=== PATIENT | male | born 1975 | race American Indian/Alaskan Native ===

== ENCOUNTER 2020-11-22 03:22 | Emergency (ER) | payer BC ==
[2020-11-22] MEDS ORDERED: SODIUM CHLORIDE 0.9% 1000 ML 1,000 ML IV ONE ×2 (03:44→05:13)
--- NOTE | 2020-11-22 03:46 | Emergency Department Report ---
ED General Adult HPI - General Chief complaint: Extremity Problem,Nontraumatic Stated complaint: HIGH BLOOD SUGAR PUI?: No Time Seen by Provider: 11/22/20 03:42 Source: patient Mode of arrival: Stretcher Limitations: No Limitations - History of Present Illness Initial comments: Patient is a 45-year-old male who presents emergency room with complaints of bilateral lower extremity pain. Patient states he is having leg cramps. Patient states it started 1 hour ago. Patient states that somebody had called EMS to bring him to the hospital. Patient states his blood sugar has also been high. Patient states that he is an insulin-dependent diabetic. Patient states he is compliant with his medications. Patient states he is not sure why he is having leg cramps or his blood sugar is high. Patient denies chest pain or shortness of breath. Patient denies calf tenderness. Patient denies recent travel. Patient denies recent international travel. Patient denies exposure to the novel coronavirus. Patient denies sick contacts. Patient denies fever and chills. Patient denies cough. Patient denies diarrhea. Patient denies coming in contact with anybody with symptoms of the novel coronavirus. -: Sudden Location: lower extremity Severity scale (0 -10): 10 Quality: stabbing Consistency: constant Improves with: rest Worsens with: movement Associated Symptoms: denies: confusion, chest pain, cough, diaphoresis, fev er/chills, headaches, loss of appetite, malaise, nausea/vomiting, rash, seizure, shortness of breath, syncope, weakness Treatments Prior to Arrival: none - Related Data Previous Rx's Medication Instructions Recorded Last Taken Type Acetaminophen/Codeine [Tylenol 1 tab PO Q6H PRN #12 tab 11/22/20 Unknown Rx /Codeine # 3 tab] Allergies Allergy/AdvReac Type Severity Reaction Status Date / Time No Known Allergies Allergy Unverified 11/22/20 04:15 ED Review of Systems ROS: Stated complaint: HIGH BLOOD SUGAR Other details as noted in HPI Constitutional: denies: chills, fever Eyes: denies: eye pain, eye discharge, vision change ENT: denies: ear pain, throat pain Respiratory: denies: cough, shortness of breath, wheezing Cardiovascular: denies: chest pain, palpitations Endocrine: no symptoms reported Gastrointestinal: denies: abdominal pain, nausea, diarrhea Genitourinary: denies: urgency, dysuria Musculoskeletal: denies: back pain, joint swelling, arthralgia Skin: denies: rash, lesions Neurological: denies: headache, weakness, paresthesias Psychiatric: denies: anxiety, depression Hematological/Lymphatic: denies: easy bleeding, easy bruising ED Past Medical Hx - Past Medical History Previous Medical History?: Yes Hx Hypertension: Yes Hx Diabetes: Yes - Surgical History Past Surgical History?: No - Family History Family history: no significant - Social History Smoking Status: Never Smoker Substance Use Type: None - Medications Home Medications: Home Medications Medication Instructions Recorded Confirmed Last Taken Type Acetaminophen/Codeine [Tylenol 1 tab PO Q6H PRN #12 tab 11/22/20 Unknown Rx /Codeine # 3 tab] ED Physical Exam - General General appearance: alert, in no apparent distress - Head Head exam: Present: atraumatic, normocephalic - Eye Eye exam: Present: normal appearance - ENT ENT exam: Present: mucous membranes moist - Neck Neck exam: Present: normal inspection - Respiratory Respiratory exam: Present: normal lung sounds bilaterally. Absent: respiratory distress - Cardiovascular Cardiovascular Exam: Present: regular rate, normal rhythm. Absent: systolic mur mur, diastolic murmur, rubs, gallop - GI/Abdominal GI/Abdominal exam: Present: soft, normal bowel sounds - Rectal Rectal exam: Present: deferred - Extremities Exam Extremities exam: Present: normal inspection - Back Exam Back exam: Present: normal inspection - Neurological Exam Neurological exam: Present: alert, oriented X3 - Psychiatric Psychiatric exam: Present: normal affect, normal mood - Skin Skin exam: Present: warm, dry, intact, normal color. Absent: rash ED Course - Reevaluation(s) Reevaluation #1: Patient states his pain is better. Patient will have a repeat CK. 11/22/20 05:15 Reevaluation #2: Patient states his pain is better. Patient never received the Dilaudid. Patient has only received fluids. Patient CT is better. I discussed all results and clinical findings with patient. I discussed plan of care with patient. Patient agrees with plan of care. Patient is stable for discharge. Patient will be discharged home. Patient given discharge instructions. Patient voiced understanding of discharge instructions. 11/22/20 06:14 ED Medical Decision Making - Lab Data Result diagrams: 11/22/20 04:30 11/22/20 04:30 - Medical Decision Making Patient is a 45-year-old male that presents emergency room with complaints of elevated sugar and muscle graft. Patient brought in by EMS and the patient was found to have high blood sugar. Patient given a liter of fluid by EMS. Patient then given another liter of fluid by us after having his blood drawn. Patient given a total of 2 L of fluid and then patient had a repeat blood draw. Patient's labs are essentially unremarkable save for hyperglycemia and elevated CK. Patient's second CK came back lower. Patient given 1/3 L of fluid prior to discharge. Patient's pain improved with just fluid. Patient said his pain was dramatically better after treatment. Patient responded well to treatment. Patient is not in DKA. Patient CK improved. Patient is stable for discharge. Patient can be discharged home. Patient instructed to increase his fluids de crease his salt intake. Patient is not require any further emergency medical service. Patient not require any further inpatient services. Patient is stable for discharge. Patient discharged home. - Differential Diagnosis Dehydration, rhabdo, myositis, muscle cramps Critical care attestation.: If time is entered above; I have spent that time in minutes in the direct care of this critically ill patient, excluding procedure time. ED Disposition Clinical Impression: Elevated CK, Muscle cramps, Myalgia, Dehydration, Hyperglycemia Disposition: DC-01 TO HOME OR SELFCARE Is pt being admited?: No Does the pt Need Aspirin: No Condition: Stable Instructions: Preventing Type 2 Diabetes Mellitus, Dehydration, Adult, Idwv-ln-Klgh, Hyperglycemia, Dsya-tx-Vkhz, Creatine Kinase Test, Blood Glucose Monitoring, Adult, Dehydration, Adult Additional Instructions: Patient to follow-up with primary care in 2 days. Patient to follow-up with water meter reader in 2 to 3 days. Patient to rest. Patient to increase water. Patient to avoid strenuous exercise or heavy lifting until cleared by primary care. Patient to take Tylenol as needed for pain. Patient to increase water. Patient to eat a low-salt, heart healthy and diabetic diet. Patient to take meds as directed. Patient to return to the ER if condition worsens, changes or new symptoms arise. Prescriptions: Acetaminophen/Codeine [Tylenol /Codeine # 3 tab] 1 tab PO Q6H PRN #12 tab PRN Reason: Pain , Severe (7-10) Referrals: PRIMARY CARE, [Primary Care Provider] - 2-3 Days Time of Disposition: 06:20
[2020-11-22 04:48] LABS: Basophils % (Auto) 0.8 % (0.0-1.8); Eosinophils # (Auto) 0.2 K/mm3 (0.0-0.4); Eosinophils % (Auto) 3.1 % (0.0-4.3); Hematocrit 39.5 % (35.5-45.6); Hemoglobin 13.9 gm/dl (11.8-15.2); Lymphocytes # (Auto) 2.3 K/mm3 (1.2-5.4); Mean Corpuscular HGB Conc 35 % (32-34); Mean Corpuscular Volume 91 fl (84-94); Monocytes # (Auto) 0.4 K/mm3 (0.0-0.8); Monocytes % (Auto) 7.1 % (0.0-7.3); Platelet Count 212 K/mm3 (140-440); Red Blood Count 4.32 M/mm3 (3.65-5.03); Red Cell Distribution Width 12.8 % (13.2-15.2)
[2020-11-22 04:59] LABS: Bilirubin,Urine NEG (Negative); Blood,Urine NEG (Negative); Color,Urine Yellow (Yellow); Protein,Urine <15 mg/dL mg/dL (Negative); RBC,Urine < 1.0 /HPF (0.0-6.0); Urobilinogen,Urine < 2.0 mg/dL (<2.0); WBC,Urine < 1.0 /HPF (0.0-6.0)
[2020-11-22 05:06] LABS: Alanine Aminotransferase 21 units/L (7-56); Albumin 4.1 g/dL (3.9-5); BUN/Creatinine Ratio 13; Bilirubin,Direct < 0.2 mg/dL (0-0.2); Blood Urea Nitrogen 15 mg/dL (9-20); Calcium 9.2 mg/dL (8.4-10.2); Hemolysis Index 18
[2020-11-22] MEDS ORDERED: HYDROmorphone 1 MG/1 ML INJ IV ONE (05:14)
[2020-11-22 08:46] VITALS: BP 125/84
== END 2020-11-22 07:35 | disposition home or self-care (01) ==
LOC: ED 03:22
DX: E11.65 Type 2 diabetes mellitus with hyperglycemia (principal); M79.10 Myalgia, unspecified site; E86.0 Dehydration; R74.8 Abnormal levels of other serum enzymes; R25.2 Cramp and spasm; I10 Essential (primary) hypertension; Z79.899 Other long term (current) drug therapy
CPT/HCPCS: 36415; 80048; 80076; 81001; 82550; 82805; 85025; 96360; 96361; 99284; J7030

== ENCOUNTER 2021-01-12 00:29 | Emergency (ER) | payer BC ==
--- NOTE | 2021-01-12 04:22 | Event Note ---
ED Screening Note Date of service: 01/12/21 Time: 04:20 ED Screening Note: 45-year-old male patient with history of asthma, hypertension, prior ID, prior stroke, sleep apnea, and diabetes presents to the emergency department via EMS with complaints of diffuse body aches and paresthesias for approximately 1 month. Today, patient began feeling dizzy, prompting him to call the paramedics. Patient states he has been out of his insulin for approximately 1 month. Patient is not anticoagulated. Tachycardic in triage. General: Awake, appropriately interactive, no acute distress. Neck: Supple. Full range of motion intact. Cardiovascular: Normal peripheral perfusion. Pulmonary: No respiratory distress. Patient is speaking normally without use of accessory muscles. Skin: No apparent rashes or lesions. Neurological: No facial asymmetry. Speech is clear. Follows commands. Patient is alert and oriented. Musculoskeletal: Moves all four extremities spontaneously with normal range of motion. Psych: Cooperative. Appropriate mood and affect. EKG, labs, chest x-ray ordered. ekg monitor tech and peripheral IV access requested. Attending emergency physician aware. I have greeted and performed a focused rapid initial assessment of this patient. A comprehensive ED assessment and evaluation of the patient, analysis of all test results, and completion of the medical decision-making process will be conducted by additional ED providers. This initial assessment/diagnostic orders/clinical plan/treatment(s) is/are subject to change based on patients health status, clinical progression and re-assessment. Further treatment and workup at subsequent clinical provider's discretion. Patient/guardian urged not to elope from the ED as their condition may be serious if not clinically assessed and managed.
[2021-01-12 04:38] LABS: Bilirubin,Urine NEG (Negative); Blood,Urine NEG (Negative); Color,Urine Colorless (Yellow); Protein,Urine <15 mg/dL mg/dL (Negative); Urobilinogen,Urine < 2.0 mg/dL (<2.0)
[2021-01-12 04:49] LABS: WBC,Urine < 1.0 /HPF (0.0-6.0)
--- NOTE | 2021-01-12 04:55 | XRay Report ---
CHEST PA AND LATERAL VIEWS INDICATION: dizziness. COMPARISON: None. FINDINGS: Support devices: None. Heart: Within normal limits. Lungs/Pleura: No acute pulmonary or pleural findings. IMPRESSION: 1. No acute findings. Signer Name: Carlos White MD Signed: 01/12/2021 4:51 AM Workstation Name: [id number]
[2021-01-12 05:50] LABS: Basophils % (Auto) 0.8 % (0.0-1.8); Eosinophils # (Auto) 0.1 K/mm3 (0.0-0.4); Eosinophils % (Auto) 2.1 % (0.0-4.3); Hematocrit 48.4 % (35.5-45.6); Hemoglobin 16.9 gm/dl (11.8-15.2); Lymphocytes # (Auto) 2.5 K/mm3 (1.2-5.4); Lymphocytes % (Auto) 48.9 % (13.4-35.0); Mean Corpuscular HGB Conc 35 % (32-34); Mean Corpuscular Volume 93 fl (84-94); Monocytes # (Auto) 0.2 K/mm3 (0.0-0.8); Monocytes % (Auto) 4.9 % (0.0-7.3); Platelet Count 223 K/mm3 (140-440); Red Blood Count 5.21 M/mm3 (3.65-5.03)
[2021-01-12 06:11] LABS: Albumin 4.6 g/dL (3.9-5); BUN/Creatinine Ratio 18; Blood Urea Nitrogen 22 mg/dL (9-20); Calcium 9.6 mg/dL (8.4-10.2); Hemolysis Index 68
[2021-01-12] MEDS ORDERED: SODIUM CHLORIDE 0.9% 1000 ML 1,000 ML IV ONE ×3 (06:24→11:32)
[2021-01-12 06:37] LABS: Alanine Aminotransferase < 5 units/L (7-56)
[2021-01-12 08:39] VITALS: BP 124/86
--- NOTE | 2021-01-12 08:40 | Event Note ---
Face to Face: For this encounter I have reviewed the PA/NURSING SERVICES MANAGER documentation, treatment plan, medical decision making, and I had face to face time with this patient. Mr. He is a 45-year-old male presents with generalized weakness paresthesias. He has body aches mild cough. Patient has been unable to afford insulin medication. t Suspect viral syndrome also patient has signs and symptoms of dehydration hypovolemia due to prolonged hyperglycemia. My colleague will address volume deficit and hyperglycemia with IV fluid and insulin bolus.
[2021-01-12] MEDS ORDERED: INSULIN REGULAR, HUMAN 100 UNITS/1 ML SUB-Q ONE (08:46)
--- NOTE | 2021-01-12 11:24 | Emergency Department Report ---
ED General Adult HPI - General Chief complaint: Hyperglycemia Stated complaint: HIGH BS Time Seen by Provider: 01/12/21 08:45 Source: patient Mode of arrival: Ambulatory Limitations: No Limitations - History of Present Illness Initial comments: The patient was evaluated in the emergency department for symptoms described in the history of present illness. He/she was evaluated in the context of the global COVID-19 pandemic, which necessitated consideration that the patient might be at risk for infection with the virus that causes COVID-19. Instituti onal protocols and algorithms that pertain to the evaluation of patients at risk for COVID-19 are in a state of rapid change based on information released by regulatory bodies including the CDC and federal and state organizations. These policies and algorithms were followed during the patient's care in the emergency department. Please note that these policies, procedures and recommendations changed on a rapid basis. 45-year-old -[place] male who is noncompliant on his chronic disease management of diabetes hypertension presents to the emergency room stating he has been out of his insulin for over a month. Patient also reports that he has a month history of paresthesias in his feet. Patient states that he has had body aches. Patient is unvaccinated. States that he was having some dizziness and that is what prompted him to call EMS to come in. Patient admits that he has been hospitalized for DKA about 2 months ago. -: Last night Severity scale (0 -10): 9 Improves with: none Worsens with: none Associated Symptoms: denies other symptoms, other (Increased urination increased thirst) Treatments Prior to Arrival: none - Related Data Previous Rx's Medication Instructions Recorded Last Taken Type Acetaminophen/Codeine [Tylenol 1 tab PO Q6H PRN #12 tab 11/22/20 Unknown Rx /Codeine # 3 tab] Insulin Aspart Prot/Insuln Asp 20 unit SQ AC #1 insuln.pen 01/12/21 Unknown Rx [Insulin Aspart Prot-Insuln Asp] Allergies Allergy/AdvReac Type Severity Reaction Status Date / Time No Known Allergies Allergy Unverified 11/22/20 04:15 ED Review of Systems ROS: Stated complaint: HIGH BS Other details as noted in HPI Comment: All other systems reviewed and negative Endocrine: increased thirst Gastrointestinal: diarrhea, other Genitourinary: frequency ED Past Medical Hx - Past Medical History Previous Medical History?: Yes Hx Hypertension: Yes Hx CVA: Yes (TIA) Hx Heart Attack/AMI: Yes Hx Diabetes: Yes Hx Asthma: Yes Additional medical history: sleep apnea - Surgical History Past Surgical History?: No - Social History Smoking Status: Never Smoker Substance Use Type: None - Medications Home Medications: Home Medications Medication Instructions Recorded Confirmed Last Taken Type Acetaminophen/Codeine [Tylenol 1 tab PO Q6H PRN #12 tab 11/22/20 Unknown Rx /Codeine # 3 tab] Insulin Aspart Prot/Insuln Asp 20 unit SQ AC #1 insuln.pen 01/12/21 Unknown Rx [Insulin Aspart Prot-Insuln Asp] ED Physical Exam - General Limitations: No Limitations General appearance: alert, in no apparent distress, obese - Head Head exam: Present: atraumatic, normocephalic - Eye Eye exam: Present: normal appearance - ENT ENT exam: Present: mucous membranes moist - Neck Neck exam: Present: normal inspection - Respiratory Respiratory exam: Present: normal lung sounds bilaterally. Absent: respiratory distress - Cardiovascular Cardiovascular Exam: Present: regular rate, normal rhythm. Absent: systolic murmur, diastolic murmur, rubs, gallop - GI/Abdominal GI/Abdominal exam: Present: soft, normal bowel sounds - Rectal Rectal exam: Present: deferred - Extremities Exam Extremities exam: Present: normal inspection. Absent: pedal edema - Back Exam Back exam: Present: normal inspection, full ROM - Neurological Exam Neurological exam: Present: alert, oriented X3, normal gait - Psychiatric Psychiatric exam: Present: normal affect, normal mood - Skin Skin exam: Present: warm, dry, intact, normal color. Absent: rash ED Course Vital Signs 01/12/21 01/12/21 01/12/21 00:58 07:15 08:36 Temperature 98.2 F 98.6 F Pulse Rate 105 H 94 H Respiratory 18 16 20 Rate Blood Pressure 122/87 121/88 O2 Sat by Pulse 95 99 96 Oximetry 01/12/21 01/12/21 01/12/21 08:38 09:55 10:01 Temperature 98.6 F Pulse Rate 94 H Respiratory 20 Rate Blood Pressure 124/86 O2 Sat by Pulse 96 92 94 Oximetry 01/12/21 01/12/21 01/12/21 10:15 10:31 10:45 Temperature Pulse Rate Respiratory Rate Blood Pressure O2 Sat by Pulse 96 96 95 Oximetry 09/08/2901/12/21 01/12/21 11:01 11:15 11:31 Temperature Pulse Rate Respiratory Rate Blood Pressure O2 Sat by Pulse 96 96 97 Oximetry 01/12/21 01/12/21 01/12/21 11:45 12:00 12:15 Temperature Pulse Rate Respiratory Rate Blood Pressure O2 Sat by Pulse 97 95 100 Oximetry 01/12/21 01/12/21 12:31 12:45 Temperature Pulse Rate Respiratory Rate Blood Pressure O2 Sat by Pulse 98 97 Oximetry ED Medical Decision Making - Lab Data Result diagrams: 01/12/21 04:54 01/12/21 04:54 Laboratory Tests 01/12/21 01/12/21 01/12/21 04:54 04:54 04:54 WBC 5.1 RBC 5.21 H Hgb 16.9 H Hct 48.4 H MCV 93 MCH 32 MCHC 35 H RDW 13.0 L Plt Count 223 Lymph % (Auto) 48.9 H [place] % (Auto) 4.9 Eos % (Auto) 2.1 Baso % (Auto) 0.8 Lymph # (Auto) 2.5 [place] # (Auto) 0.2 Eos # (Auto) 0.1 Baso # (Auto) 0.0 Seg Neutrophils % 43.3 Seg Neutrophils # 2.2 VBG pH 7.268 L Sodium 132 L Potassium 5.0 Chloride 93.6 L Carbon Dioxide 24 Anion Gap 19 BUN 22 H Creatinine 1.2 Estimated GFR > 60 BUN/Creatinine Ratio 18 Glucose 650 H* Calcium 9.6 Magnesium 2.40 H Total Bilirubin 0.20 AST < 5 L ALT < 5 L Alkaline Phosphatase 142 H Total Creatine Kinase 374 H Troponin T < 0.010 Total Protein 8.8 H Albumin 4.6 Albumin/Globulin Ratio 1.1 Urine Color Urine Turbidity Urine pH Ur Specific [place] Urine Protein Urine Glucose (UA) Urine Ketones Urine Blood Urine Nitrite Urine Bilirubin Urine Urobilinogen Ur Leukocyte Esterase Urine WBC (Auto) Urine RBC (Auto) 01/12/21 Unknown WBC RBC Hgb Hct MCV MCH MCHC RDW Plt Count Lymph % (Auto) [place] % (Auto) Eos % (Auto) Baso % (Auto) Lymph # (Auto) [place] # (Auto) Eos # (Auto) Baso # (Auto) Seg Neutrophils % Seg Neutrophils # VBG pH Sodium Potassium Chloride Carbon Dioxide Anion Gap BUN Creatinine Estimated GFR BUN/Creatinine Ratio Glucose Calcium Magnesium Total Bilirubin AST ALT Alkaline Phosphatase Total Creatine Kinase Troponin T Total Protein Albumin Albumin/Globulin Ratio Urine Color Colorless Urine Turbidity Clear Urine pH 5.0 Ur Specific [place] 1.030 Urine Protein <15 mg/dl Urine Glucose (UA) >=500 Urine Ketones Neg Urine Blood Neg Urine Nitrite Neg Urine Bilirubin Neg Urine Urobilinogen < 2.0 Ur Leukocyte Esterase Neg Urine WBC (Auto) < 1.0 Urine RBC (Auto) 3.0 - Radiology Data Radiology results: report reviewed Study Comments [facility] [address] [place] [address] XRay Report Signed Patient: PABLO MCCANN MR#: [id number] 9 : 1975 Acct:[id number] Age/Sex: 45 / M ADM Date: 01/12/21 Loc: ED Attending Dr: Ordering Physician: MOLLY LOZADA Date of Service: 01/12/21 Procedure(s): XR chest routine 2V Accession Number(s): [id number] cc: MOLLY LOZADA Fluoro Time In Minutes: CHEST PA AND LATERAL VIEWS INDICATION: dizziness. COMPARISON: None. FINDINGS: Support devices: None. Heart: Within normal limits. Lungs/Pleura: No acute pulmonary or pleural findings. IMPRESSION: 1. No acute findings. Signer Name: Carlos White MD Signed: 01/12/2021 4:51 AM Workstation Name: [id number] Transcribed By: DOLORES Dictated By: Carlos White MD Electronically Authenticated By: Carlos White MD Signed Date/Time: 01/12/21450 DD/ 9 TD/TT: - Medical Decision Making 45-year-old -[place] male who is noncompliant on his chronic disease management of diabetes hypertension presents to the emergency room stating he has been out of his insulin for over a month. Patient also reports that he has a month history of paresthesias in his feet. Patient states that he has had body aches. Patient is unvaccinated. States that he was having some dizziness and that is what prompted him to call EMS to come in. Patient appears to be hypovolemic secondary to hyperglycemia. Will start patient on 2 l of normal saline insulin 10 units subcu. Chest x-ray was negative for any acute abnormalities. Critical Care Time: Yes (35) Critical care attestation.: If time is entered above; I have spent that time in minutes in the direct care of this critically ill patient, excluding procedure time. ED Disposition Clinical Impression: Non-compliant patient Uncontrolled diabetes mellitus Qualifiers: Diabetes mellitus type: type 2 Glycemic state: with hyperglycemia Qualified Code(s): E11.65 - Type 2 diabetes mellitus with hyperglycemia Diabetes type 2, uncontrolled Qualifiers: Glycemic state: with hyperglycemia Qualified Code(s): E11.65 - Type 2 diabetes mellitus with hyperglycemia Disposition: 01 HOME / SELF CARE / HOMELESS Is pt being admited?: No Does the pt Need Aspirin: No Condition: Stable Instructions: Diabetes Mellitus Type 2 in Adults (ED), Type 2 Diabetes Mellitus, Self Care, Adult, [id number], Type 2 Diabetes Mellitus, Diagnosis, Adult, [id number] Additional Instructions: Please take your insulin as prescribed. As this will prevent you from having complications with your diabetes. Is very important you follow-up with a primary care provider I have listed a clinic below for your convenience. Sure to increase your fluid intake stay away from alcohol and sweet beverages as well as food. Prescriptions: Insulin Aspart Prot/Insuln Asp [Insulin Aspart Prot-Insuln Asp] 20 unit SQ AC #1 insuln.pen Referrals: PRIMARY CARE, [Primary Care Provider] - 3-5 Days [facility] [Provider Group] - 3-5 Days Forms: Work/School Release Form(ED)
[2021-01-12] MEDS ORDERED: INSULIN REGULAR, HUMAN 100 UNITS/1 ML IV ONE (11:32)
--- NOTE | 2021-01-14 14:13 | Electrocardiograph Report ---
[facility] Test Date: 2021-01-12 Test Time: 04:19:19 Pat Name: PABLO MCCANN Department: Room: Gender: M Bit Shaver: : 1975 Requested By: JORDYN BURTON Order Number: [id number] Reading MD: Mona Ho Measurements Intervals [place] Rate: 90 P: 75 [place]: 170 QRS: 63 QRSD: 90 T: 34 QT: 353 QTc: 432 Interpretive Statements Sinus rhythm Normal ECG No previous ECG available for comparison Electronically Signed On 01-14-2021 14:13:12 EDT by Mona Ho
== END 2021-01-12 16:26 | disposition home or self-care (01) ==
LOC: ED 00:29
DX: E11.65 Type 2 diabetes mellitus with hyperglycemia (principal); Z91.19 Patient's noncompliance with other medical treatment and regimen; I10 Essential (primary) hypertension; I63.9 Cerebral infarction, unspecified; J45.909 Unspecified asthma, uncomplicated; G47.30 Sleep apnea, unspecified
CPT/HCPCS: 36415; 71046; 80053; 81001; 82550; 82805; 82962; 83735; 84484; 85025; 93005; 96361; 96372; 96374; 99284; J7030; J1815

== ENCOUNTER 2021-04-26 08:08 | Emergency (ER) | payer BC ==
[2021-04-26 08:11] VITALS: BP 136/92
[2021-04-26] MEDS ORDERED: KETOROLAC 30 MG/1 ML INJ IM ONE (09:15)
--- NOTE | 2021-04-26 10:08 | Emergency Department Report ---
ED Back Pain/Injury HPI - General Chief Complaint: Back Pain/Injury Stated Complaint: BACK PAIN Time Seen by Provider: 04/26/21 09:03 Source: patient Limitations: No Limitations - History of Present Illness Initial Comments: 46-year-old obese -[place] male presents to the emergency room complaining of chronic back pain. Patient states he has a history of chronic back pain with arthritis and degenerative disc disease. He reports he has a past medical history of diabetes and hypertension. He states he has been seen by his doctor for his back and was given the diagnoses. Patient is taking nothing for his back pain. Denies any recent falls. Has no known drug allergies. MD Complaint: back pain Similar Symptoms Previously: Yes Severity scale (0 -10): 10 Quality: aching Consistency: constant Improves With: none Worsens With: movement, walking Context: while lifting, turning/twisting, bending Associated Symptoms: denies: confusion, weakness, chest pain, numbness, diaphoresis, incontinence, fever/chills, constipation, headaches, nausea/vomiting, rash, seizure, shortness of breath, syncope - Related Data Previous Rx's Medication Instructions Recorded Last Taken Type Acetaminophen/Codeine [Tylenol 1 tab PO Q6H PRN #12 tab 11/22/20 Unknown Rx /Codeine # 3 tab] Insulin Aspart Prot/Insuln Asp 20 unit SQ AC #1 insuln.pen 01/12/21 Unknown Rx [Insulin Aspart Prot-Insuln Asp] Allergies Allergy/AdvReac Type Severity Reaction Status Date / Time No Known Allergies Allergy Unverified 04/26/21 08:11 ED Review of Systems ROS: Stated complaint: BACK PAIN Other details as noted in HPI Comment: All other systems reviewed and negative ED Past Medical Hx - Past Medical History Previous Medical History?: Yes Hx Hypertension: Yes Hx CVA: Yes (TIA) Hx Heart Attack/AMI: Yes Hx Diabetes: Yes Hx Asthma: Yes Additional medical history: sleep apnea - Social History Smoking Status: Never Smoker Substance Use Type: None - Medications Home Medications: Home Medications Medication Instructions Recorded Confirmed Last Taken Type Acetaminophen/Codeine [Tylenol 1 tab PO Q6H PRN #12 tab 11/22/20 Unknown Rx /Codeine # 3 tab] Insulin Aspart Prot/Insuln Asp 20 unit SQ AC #1 insuln.pen 01/12/21 Unknown Rx [Insulin Aspart Prot-Insuln Asp] ED Physical Exam - General Limitations: No Limitations General appearance: alert, in no apparent distress - Head Head exam: Present: atraumatic, normocephalic - Eye Eye exam: Present: normal appearance - ENT ENT exam: Present: mucous membranes moist - Neck Neck exam: Present: normal inspection - Respiratory Respiratory exam: Present: normal lung sounds bilaterally. Absent: respiratory distress - Cardiovascular Cardiovascular Exam: Present: regular rate, normal rhythm. Absent: systolic murmur, diastolic murmur, rubs, gallop - GI/Abdominal GI/Abdominal exam: Present: soft, normal bowel sounds - Rectal Rectal exam: Present: deferred - Extremities Exam Extremities exam: Present: normal inspection - Back Exam Back exam: Present: normal inspection, full ROM, paraspinal tenderness (Left side back). Absent: vertebral tenderness, rash noted - Neurological Exam Neurological exam: Present: alert, oriented X3 - Psychiatric Psychiatric exam: Present: normal affect, normal mood - Skin Skin exam: Present: warm, dry, intact, normal color. Absent: rash ED Course Vital Signs 04/26/21 04/26/21 08:09 08:11 Temperature 98.4 F Pulse Rate 80 Respiratory 16 Rate Blood Pressure 136/92 [Left] O2 Sat by Pulse 99 Oximetry ED Medical Decision Making - Medical Decision Making 46-year-old obese -[place] male presents to the emergency room complaining of chronic back pain. Patient states he has a history of chronic back pain with arthritis and degenerative disc disease. He reports he has a past medical history of diabetes and hypertension. He states he has been seen by his doctor for his back and was given the diagnoses. Patient is taking not terri for his back pain. Denies any recent falls. Has no known drug allergies. Patient was given an order for Toradol IM. Patient be discharged home to follow-up with a back specialist. Patient is instructed to increase his fluid intake take Tylenol or ibuprofen as needed for chronic back pain. Critical care attestation.: If time is entered above; I have spent that time in minutes in the direct care of this critically ill patient, excluding procedure time. ED Disposition Clinical Impression: Chronic back pain Disposition: HOME / SELF CARE / HOMELESS Is pt being admited?: No Does the pt Need Aspirin: No Condition: Stable Instructions: Chronic Back Pain, [id number] Additional Instructions: Please take [id number] ibuprofen naproxen or Tylenol. Is important you follow-up with a back specialist I have listed 1 below for your convenience. Referrals: PRIMARY CARE, [Primary Care Provider] - 3-5 Days [facility] [Provider Group] - 3-5 Days Forms: Work/School Release Form(ED) Time of Disposition: 10:11
== END 2021-04-26 10:36 | disposition home or self-care (01) ==
LOC: ED 08:08
DX: G89.29 Other chronic pain (principal); I10 Essential (primary) hypertension; E11.9 Type 2 diabetes mellitus without complications; J45.909 Unspecified asthma, uncomplicated; Z79.899 Other long term (current) drug therapy
CPT/HCPCS: 96372; 99283; J1885

== ENCOUNTER 2021-08-21 20:42 | Emergency (ER) | payer SELFPAY ==
--- NOTE | 2021-08-22 06:52 | Emergency Department Report ---
ED General Adult HPI - General Chief complaint: Medical Clearance Stated complaint: SICK X 4 WKS Time Seen by Provider: 08/22/21 04:27 Source: patient, EMS Mode of arrival: Ambulatory Limitations: No Limitations - History of Present Illness Initial comments: 46-year-old -[place] male with no reported past medical history presents emergency department complaining his waking him up telling him that he has stopped breathing in his sleep for about 1 minute and has been repetitively happening off and on and want him to go have it evaluated. Subsequently she wakes up when he feels feels weak and fatigued and sometimes has a dull headache. He also reports having had cough with some congestion off and on for the past 2 weeks and some brown mucus production but denies any fevers, chills, sweats, hemoptysis, hematemesis, hematochezia, diarrhea, nausea, vomiting. No presyncope -: Gradual Radiation: non-radiation Severity scale (0 -10): 0 Quality: dull Consistency: constant Improves with: none Worsens with: none Associated Symptoms: denies other symptoms Treatments Prior to Arrival: none - Related Data Previous Rx's Medication Instructions Recorded Last Taken Type Acetaminophen/Codeine [Tylenol 1 tab PO Q6H PRN #12 tab 11/22/20 Unknown Rx /Codeine # 3 tab] Insulin Aspart Prot/Insuln Asp 20 unit SQ AC #1 insuln.pen 01/12/21 Unknown Rx [Insulin Aspart Prot-Insuln Asp] Allergies Allergy/AdvReac Type Severity Reaction Status Date / Time No Known Allergies Allergy Unverified 04/26/21 08:11 ED Review of Systems ROS: Stated complaint: SICK X 4 WKS Other details as noted in HPI Comment: All other systems reviewed and negative ED Past Medical Hx - Past Medical History Previous Medical History?: Yes Hx Hypertension: Yes Hx CVA: Yes (TIA) Hx Heart Attack/AMI: Yes Hx Diabetes: Yes Hx Asthma: Yes Additional medical history: sleep apnea - Surgical History Past Surgical History?: No - Social History Smoking Status: Never Smoker Substance Use Type: None - Medications Home Medications: Home Medications Medication Instructions Recorded Confirmed Last Taken Type Acetaminophen/Codeine [Tylenol 1 tab PO Q6H PRN #12 tab 11/22/20 Unknown Rx /Codeine # 3 tab] Insulin Aspart Prot/Insuln Asp 20 unit SQ AC #1 insuln.pen 01/12/21 Unknown Rx [Insulin Aspart Prot-Insuln Asp] ED Physical Exam - General Limitations: No Limitations General appearance: alert, in no apparent distress - Head Head exam: Present: atraumatic, normocephalic - Eye Eye exam: Present: normal appearance, PERRL, EOMI Pupils: Present: normal accommodation - ENT ENT exam: Present: normal exam, normal orophraynx, mucous membranes moist, TM's normal bilaterally, other (Irritation to the posterior pharynx. No drooling. Normal voice) - Neck Neck exam: Present: normal inspection, full ROM, other (Shortened thickened neck) - Respiratory Respiratory exam: Present: normal lung sounds bilaterally. Absent: respiratory distress, wheezes, rales, chest wall tenderness, accessory muscle use, decreased breath sounds, prolonged expiratory - Cardiovascular Cardiovascular Exam: Present: regular rate, normal rhythm. Absent: systolic murmur, diastolic murmur, rubs, gallop - GI/Abdominal GI/Abdominal exam: Present: soft, normal bowel sounds. Absent: distended, guarding, hyperactive bowel sounds - Rectal Rectal exam: Present: deferred - Extremities Exam Extremities exam: Present: normal inspection - Back Exam Back exam: Present: normal inspection. Absent: CVA tenderness (R), CVA tenderness (L) - Neurological Exam Neurological exam: Present: alert, oriented X3, CN II-XII intact - Psychiatric Psychiatric exam: Present: normal affect, normal mood - Skin Skin exam: Present: warm, dry, intact, normal color. Absent: rash ED Course Vital Signs 08/21/21 08/22/21 20:57 08:26 Temperature 98.9 F 97.9 F Pulse Rate 88 80 Respiratory 18 16 Rate Blood Pressure 150/90 152/91 [Right] O2 Sat by Pulse 99 98 Oximetry Critical care attestation.: If time is entered above; I have spent that time in minutes in the direct care of this critically ill patient, excluding procedure time. ED Disposition Clinical Impression: Breathing-related sleep disorder, Cough Disposition: 01 HOME / SELF CARE / HOMELESS Is pt being admited?: No Does the pt Need Aspirin: No Condition: Stable Instructions: Sleep Apnea, Screening for Sleep Apnea, Cough, Adult Additional Instructions: Recommend you go to be tested for obstructive sleep apnea as it appears this is the nidus of your issue. Referrals: JUSTINE HARRIS MD [Primary Care Provider] - 3-5 Days Forms: Work/School Release Form(ED)
[2021-08-22] MEDS ORDERED: INSULIN REGULAR, HUMAN 100 UNITS/1 ML SUB-Q ONE (07:04)
[2021-08-22 08:27] VITALS: BP 152/91
== END 2021-08-22 08:27 | disposition home or self-care (01) ==
LOC: ED 20:42
DX: R06.02 Shortness of breath (principal); R05.9 Cough, unspecified; I10 Essential (primary) hypertension; I21.9 Acute myocardial infarction, unspecified; Z86.73 Personal history of transient ischemic attack (TIA), and cerebral infarction without residual deficits; E11.9 Type 2 diabetes mellitus without complications; J45.909 Unspecified asthma, uncomplicated; Z98.890 Other specified postprocedural states
CPT/HCPCS: 82962; 99283